=== PATIENT | female | born 1995 | race Caucasian/White ===

== ENCOUNTER 2017-06-13 20:08 | Emergency (ER) | payer OTHER ==
[~2017-06-13] VITALS: Ht 160 cm; Wt 63.5 kg
[2017-06-13 21:05] VITALS: BP 129/88
[2017-06-13] MEDS ORDERED: ACETAMINOPHEN/CODEINE 300-30 MG TABLET PO ONE (21:15)
== END 2017-06-13 21:59 | disposition home or self-care (01) ==
LOC: EMS 20:12
DX: S93.402A Sprain of unspecified ligament of left ankle, initial encounter (principal); V87.8XXA Person injured in other specified noncollision transport accidents involving motor vehicle (traffic), initial encounter; Y92.89 Other specified places as the place of occurrence of the external cause; Y93.89 Activity, other specified; Y99.8 Other external cause status
CPT/HCPCS: 29515; 29540; 99284